=== PATIENT | male | born 1950 | race Caucasian/White ===

== ENCOUNTER → 2017-01-31 | Outpatient (CLI) | payer BC ==
[~2017-01-31] MED LIST: ASPIRIN CHILDRE81 MG PO; Lortab 5/500 501 TAB PO; MOTRIN800 MG PO
== END ==
LOC: CT 09:41
DX: I25.10 Atherosclerotic heart disease of native coronary artery without angina pectoris (principal); M25.78 Osteophyte, vertebrae; F17.210 Nicotine dependence, cigarettes, uncomplicated

== ENCOUNTER 2018-07-16 05:50 | Inpatient (IN) | payer BC, MEDICARE ==
[~2018-07-16] VITALS: Ht 175.2 cm; Wt 90.3 kg
--- NOTE | ~2018-07-16 | EKG ---
[place], [place] ELECTROCARDIOGRAM REPORT NAME: ROSELIA HERRERA UNIT #: [id number] ROOM: 411 DOCTOR: ELIZABETH DRAFT REPORT BIRTHDATE: [birth year] [facility] [place] Test Date: 2018-07-16 Test Time: 06:18:15 Pat Name: ROSELIA HERRERA Department: Room: 411 Gender: M Packing Floor Worker: : [id number] Requested By: ALBAN PRETTY Order Number: [id number] Reading MD: Russell Ford MD Measurements Intervals [place] Rate: 114 P: CT: QRS: -6 QRSD: 95 T: 46 QT: 334 QTc: 461 Interpretive Statements Atrial fibrillation Borderline repolarization abnormality No previous ECG available for comparison Electronically Signed On 07-16-2018 19:59:45 PDT by Russell Ford MD CM:EKGRPT:ELECTROCARDIOGRAM REPORT 7 [id number] ALBAN JERNIGAN DRAFT REPORT ALBAN PRETTY DO
[2018-07-16 05:55] VITALS: BP 148/94
[2018-07-16] MEDS ORDERED: MULTIVITAMINS1 EAC5 PO (06:01)
[2018-07-16 06:40] LABS: HEMATOCRIT 40.8 % (42.0-52.0); HEMOGLOBIN 14.1 g/dl (14.0-18.0); MEAN CELL VOLUME 94.2 fl (80.0-94.0); MEAN CORPUSCULAR HGB 32.6 pg (27.0-31.0); MEAN CORPUSCULAR HGB CONC 34.6 g/dl (33.0-37.0); MEAN PLATELET VOLUME 9.8 fl (9.6-12.3); PLATELET COUNT AUTOMATED 397 10*3/uL (130-400); RED BLOOD COUNT 4.33 10*6/uL (4.50-5.90); RED CELL DISTRI WIDTH 14.3 % (0-14.5); WHITE BLOOD COUNT 11.4 10*3/uL (4.8-10.8)
[2018-07-16 06:54] LABS: ACT PARTIAL THROMBO TIME 25.1 SECONDS (20.8-31.5)
[2018-07-16 07:02] LABS: ALBUMIN 2.5 gm/dl (3.1-4.5); ALKALINE PHOSPHATASE 80 U/L (45-117); BUN 10 mg/dl (7-24); CHLORIDE 105 mmol/L (98-107); CREATININE 0.74 mg/dL (0.70-1.30); POTASSIUM 3.8 mmol/L (3.5-5.1); SGOT/AST 14 IU/L (3-35); SGPT/ALT 33 U/L (12-78); SODIUM 140 mmol/L (136-145); TOTAL PROTEIN 7.2 gm/dL (6.4-8.2)
[2018-07-16 07:03] LABS: TROPONIN I < 0.015 ng/ml (<0.045)
[2018-07-16 07:13] LABS: PLATELET SUFFICIENCY NORMAL (NORMAL); TOTAL CELLS COUNTED 100 #CELLS
[2018-07-16 08:20] VITALS: BP 134/94
[2018-07-16 12:00] VITALS: BP 116/69
[2018-07-16 16:00] VITALS: BP 113/66
[2018-07-16 20:00] VITALS: BP 98/74
[2018-07-17] VITALS: BP 112/79
[2018-07-17 06:23] LABS: HEMATOCRIT 37.3 % (42.0-52.0); HEMOGLOBIN 12.3 g/dl (14.0-18.0); MEAN CELL VOLUME 96.6 fl (80.0-94.0); MEAN CORPUSCULAR HGB 31.9 pg (27.0-31.0); MEAN PLATELET VOLUME 9.8 fl (9.6-12.3); PLATELET COUNT AUTOMATED 380 10*3/uL (130-400); RED BLOOD COUNT 3.86 10*6/uL (4.50-5.90); RED CELL DISTRI WIDTH 14.5 % (0-14.5); WHITE BLOOD COUNT 8.5 10*3/uL (4.8-10.8)
[2018-07-17 06:37] LABS: CHLORIDE 109 mmol/L (98-107); POTASSIUM 4.2 mmol/L (3.5-5.1); SODIUM 142 mmol/L (136-145)
[2018-07-17 06:50] LABS: ALBUMIN 2.1 gm/dl (3.1-4.5); ALKALINE PHOSPHATASE 62 U/L (45-117); BUN 10 mg/dl (7-24); CHOLESTEROL 100 mg/dL (<200); CREATININE 0.71 mg/dL (0.70-1.30); HDL CHOLESTEROL 23 mg/dl (40-60); LDL CHOLESTEROL 45 mg/dL (9-159); PHOSPHOROUS 2.8 mg/dL (2.5-4.9); SGOT/AST 15 IU/L (3-35); SGPT/ALT 26 U/L (12-78); TOTAL PROTEIN 6.2 gm/dL (6.4-8.2); TRIGLYCERIDES 162 mg/dl (<150); VLDL CHOLESTEROL 32 mg/dL (6-40)
[2018-07-17 07:07] LABS: PLATELET SUFFICIENCY NORMAL (NORMAL); TOTAL CELLS COUNTED 100 #CELLS
[2018-07-17 07:41] LABS: VITAMIN D, 25-HYDROXY 33.1 ng/mL (30-100)
[2018-07-17 08:01] VITALS: BP 106/78
[2018-07-17 12:00] VITALS: BP 127/92
[2018-07-17 16:00] VITALS: BP 126/88
[2018-07-17 20:00] VITALS: BP 107/72
[2018-07-18] VITALS: BP 119/74
[2018-07-18 06:31] LABS: HEMATOCRIT 40.3 % (42.0-52.0); HEMOGLOBIN 13.4 g/dl (14.0-18.0); MEAN CELL VOLUME 96.4 fl (80.0-94.0); MEAN CORPUSCULAR HGB 32.1 pg (27.0-31.0); MEAN CORPUSCULAR HGB CONC 33.3 g/dl (33.0-37.0); MEAN PLATELET VOLUME 9.9 fl (9.6-12.3); NUCLEATED RED BLOOD CELL 0.2 % (0.0-0.0); PLATELET COUNT AUTOMATED 414 10*3/uL (130-400); RED BLOOD COUNT 4.18 10*6/uL (4.50-5.90); RED CELL DISTRI WIDTH 14.4 % (0-14.5); WHITE BLOOD COUNT 8.8 10*3/uL (4.8-10.8)
[2018-07-18 07:54] LABS: PLATELET SUFFICIENCY HIGH (NORMAL); TOTAL CELLS COUNTED 100 #CELLS
[2018-07-18 08:00] VITALS: BP 140/84
[2018-07-18 08:05] VITALS: BP 132/84
[2018-07-18] MEDS ORDERED: LEVAQUIN750 M1 PO (11:07)
[2018-07-18] MEDS ORDERED: LISINOPRIL2.5 MG PO (11:07)
[2018-07-18] MEDS ORDERED: TOPROL XL25 MG PO (11:07)
== END 2018-07-18 11:54 | disposition home or self-care (01) | DRG 177 ==
LOC: ED 05:50 → 4E 07:37 → EDHOLD 07:37 → 4E 07:51
PROVIDERS: Student in an Organized Health Care Education/Training Program
DX: A48.1 Legionnaires' disease (principal); E43 Unspecified severe protein-calorie malnutrition; D72.829 Elevated white blood cell count, unspecified; R73.9 Hyperglycemia, unspecified; I48.91 Unspecified atrial fibrillation; F17.200 Nicotine dependence, unspecified, uncomplicated; R00.0 Tachycardia, unspecified; Z82.49 Family history of ischemic heart disease and other diseases of the circulatory system; Z80.49 Family history of malignant neoplasm of other genital organs; Z79.82 Long term (current) use of aspirin; Z79.899 Other long term (current) drug therapy; Z68.29 Body mass index [BMI] 29.0-29.9, adult

== ENCOUNTER → 2018-07-25 | Outpatient (CLI) | payer BC ==
[~2018-07-25] MED LIST changes: +LEVAQUIN750 M1 PO; +LISINOPRIL2.5 MG PO; +MULTIVITAMINS1 EAC5 PO; +TOPROL XL25 MG PO
== END | disposition home or self-care (01) ==
LOC: RESCLI 08:18
DX: Z09 Encounter for follow-up examination after completed treatment for conditions other than malignant neoplasm (principal); I48.91 Unspecified atrial fibrillation; E11.65 Type 2 diabetes mellitus with hyperglycemia; E78.1 Pure hyperglyceridemia; E66.3 Overweight; Z79.82 Long term (current) use of aspirin; Z79.899 Other long term (current) drug therapy; Z88.8 Allergy status to other drugs, medicaments and biological substances

== ENCOUNTER 2020-01-25 19:43 | Emergency (ER) | payer MEDICARE, OTHER ==
[~2020-01-25] VITALS: Ht 175.2 cm; Wt 90.7 kg
[~2020-01-25 19:43] MED LIST changes: +TOPROL XL50 M1 PO; +XARE20MG PO
[2020-01-25] MEDS ORDERED: DOFETILIDE500 MCG PO (20:03)
[2020-01-25 20:44] LABS: BASO # 0.1 10*3/uL (0.0-0.1); BASO % 0.6 % (0.0-1.0); EOS # 0.2 10*3/uL (0.0-0.4); EOS % 2.2 % (1.0-4.0); HEMATOCRIT 46.2 % (42.0-52.0); LYMPH # 2.5 10*3/uL (1.3-4.4); LYMPH % 23.8 % (27.0-41.0); MEAN CELL VOLUME 93.9 fl (80.0-94.0); MEAN CORPUSCULAR HGB 31.5 pg (27.0-31.0); MEAN CORPUSCULAR HGB CONC 33.5 g/dl (33.0-37.0); MEAN PLATELET VOLUME 9.4 fl (9.6-12.3); MONO % 9.7 % (3.0-9.0); NEUT # 6.6 10*3/uL (2.3-7.9); NEUT % 63.4 % (47.0-73.0); PLATELET COUNT AUTOMATED 240 10*3/uL (130-400); RED BLOOD COUNT 4.92 10*6/uL (4.50-5.90); RED CELL DISTRI WIDTH 13.3 % (0-14.5); WHITE BLOOD COUNT 10.4 10*3/uL (4.8-10.8)
[2020-01-25 21:00] LABS: ALBUMIN 3.4 gm/dl (3.1-4.5); ALKALINE PHOSPHATASE 57 U/L (45-117); BUN 13 mg/dl (7-24); CHLORIDE 106 mmol/L (98-107); CREATININE 0.95 mg/dL (0.70-1.30); POTASSIUM 3.8 mmol/L (3.5-5.1); SGOT/AST 13 IU/L (3-35); SGPT/ALT 23 U/L (12-78); SODIUM 137 mmol/L (136-145); TOTAL PROTEIN 7.1 gm/dL (6.4-8.2)
[2020-01-25 21:01] LABS: TROPONIN I < 0.015 ng/ml (<0.045)
== END 2020-01-26 01:25 | disposition home or self-care (01) ==
LOC: ED 19:43
PROVIDERS: Emergency Medicine
DX: R06.02 Shortness of breath (principal); R06.00 Dyspnea, unspecified; I48.91 Unspecified atrial fibrillation; I25.2 Old myocardial infarction; Z79.899 Other long term (current) drug therapy; Z87.891 Personal history of nicotine dependence

== ENCOUNTER → 2024-06-04 | Outpatient (CLI) | payer MEDICARE, OTHER ==
[~2024-06-04] MED LIST changes: +DOFETILIDE500 MCG PO
== END | disposition home or self-care (01) ==
LOC: RESCLI 00:54
PROVIDERS: ATTEND Internal Medicine
DX: I25.10 Atherosclerotic heart disease of native coronary artery without angina pectoris (principal); I48.91 Unspecified atrial fibrillation; E78.1 Pure hyperglyceridemia; I10 Essential (primary) hypertension; A48.1 Legionnaires' disease; Z98.890 Other specified postprocedural states; Z87.891 Personal history of nicotine dependence; Z82.49 Family history of ischemic heart disease and other diseases of the circulatory system; Z79.899 Other long term (current) drug therapy

== ENCOUNTER 2024-12-06 04:45 | Emergency (ER) | payer MEDICARE, OTHER ==
[~2024-12-06] VITALS: Ht 172.7 cm; Wt 86.2 kg
[2024-12-06] MEDS ORDERED: AMOX-CLAV 875-1 EACH PO (05:48)
[2024-12-06] MEDS ORDERED: Amoxicillin/Clavulanate Pota 875 MG TAB PO ONE (05:50)
== END 2024-12-06 05:51 | disposition home or self-care (01) ==
LOC: ED 04:45
DX: K04.7 Periapical abscess without sinus (principal); F17.210 Nicotine dependence, cigarettes, uncomplicated; Z79.899 Other long term (current) drug therapy; Z98.890 Other specified postprocedural states